=== PATIENT | male | born 1985 | race Two or more races ===

== ENCOUNTER 2018-06-04 19:10 | Emergency (ER) | payer BC ==
[2018-06-04] MEDS: HYDROCODONE/APAP (5/325) TAB PO (21:36)
[2018-06-04] MEDS: IBUPROFEN 600 MG TAB PO (21:36)
[2018-06-04] MEDS: ONDANSETRON (ODT) 4 MG TAB ODT (21:37)
== END 2018-06-04 22:42 | disposition home or self-care (01) ==
LOC: FTE 19:10
DX: S42.022A Displaced fracture of shaft of left clavicle, initial encounter for closed fracture (principal); F17.210 Nicotine dependence, cigarettes, uncomplicated; V29.9XXA Motorcycle rider (driver) (passenger) injured in unspecified traffic accident, initial encounter
CPT/HCPCS: 29105; 73000; 99284-25